=== PATIENT | female | born 1965 ===

== ENCOUNTER 2022-06-02 09:27 | Emergency (ER) | payer SELFPAY ==
[2022-06-02 09:57] VITALS: BP 158/98
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
== END 2022-06-02 12:40 | disposition home or self-care (01) ==
LOC: ED 09:27
DX: S80.11XA Contusion of right lower leg, initial encounter (principal); Z91.013 Allergy to seafood; V89.2XXA Person injured in unspecified motor-vehicle accident, traffic, initial encounter; Y93.89 Activity, other specified; Y92.89 Other specified places as the place of occurrence of the external cause; Y99.8 Other external cause status
CPT/HCPCS: 99283